=== PATIENT | male | born 1945 ===

== ENCOUNTER 2023-08-31 15:06 | Observation (INO) ==
[2023-08-31 18:10] LABS: ABS Basophils 0.1 10^3/uL (0.0-0.1); ABS Eosinophils 0.5 10^3/uL (0.0-0.5); ABS Lymphocytes 1.5 10^3/uL (1.0-4.8); ABS Monocytes 0.9 10^3/uL (0.0-1.1); ABS Neutrophils 6.7 10^3/uL (1.5-7.6); ABS Nucleated RBC 0.02 10^3/ul; Eosinophil % 4.7 %; Hematocrit 41.4 % (38-53); Hemoglobin 14.3 g/dL (13.2-16.3); Lymphocyte % 15.6 %; Mean Corpuscular Hemoglobin 30.9 pg (27-33); Mean Corpuscular Hgb Conc 34.5 g/dL (31-36); Mean Corpuscular Volume 89.3 fL (80-97); Mean Platelet Volume 7.7 fL (7.5-11.2); Nucleated Red Blood Cells % 0.3 %/100WBC (0.0-0.8); Platelet Count 211 10^3/uL (150-450); Red Blood Count 4.63 10^6/uL (4.06-5.63); Red Cell Distribution Width 17.2 % (12-17); White Blood Count 9.6 10^3/uL (3.6-10.2)
[2023-08-31 19:08] LABS: Albumin 4.3 g/dL (3.2-5.2); Albumin/Globulin Ratio 1.6 (1-3); C Reactive Protein 5.07 mg/L (<8.01); Calcium 9.3 mg/dL (8.6-10.3); Creatinine, Serum 0.84 mg/dL (0.67-1.17); Globulin 2.7 g/dL (2-4); Potassium 3.9 mmol/L (3.5-5.0); Total Bilirubin 0.6 mg/dL (0.2-1.0); eGFR CKD-EPI 89.3 (>60)
[2023-08-31 19:28] LABS: Erythrocyte Sed Rate 17 mm/Hr (0-19)
[2023-08-31] MEDS: cefTRIAXone 1 gm/50 mL D5W 1 GM/50 ML BAG IV SCH (19:31)
[2023-08-31] MEDS ORDERED: Vancomycin per Pharmacy 1 EA NOTE FOLLOW UP SCH (20:00)
[2023-08-31] MEDS: Vancomycin 1,750 MG in NS 0.9% 500 ml BAG 500 ML IVPB ONE (22:39)
[2023-08-31] MEDS: Latanoprost 0.005% 2.5 ml BTL BOTH EYES SCH (22:56)
[2023-09-01 09:02] LABS: ABS Eosinophils 0.3 10^3/uL (0.0-0.5); ABS Monocytes 0.7 10^3/uL (0.0-1.1); ABS Neutrophils 5.3 10^3/uL (1.5-7.6); ABS Nucleated RBC 0.01 10^3/ul; Eosinophil % 4.5 %; Hematocrit 45.3 % (38-53); Hemoglobin 15.3 g/dL (13.2-16.3); Lymphocyte % 13.6 %; Mean Corpuscular Hemoglobin 30.3 pg (27-33); Mean Corpuscular Hgb Conc 33.7 g/dL (31-36); Mean Corpuscular Volume 89.8 fL (80-97); Mean Platelet Volume 7.4 fL (7.5-11.2); Nucleated Red Blood Cells % 0.1 %/100WBC (0.0-0.8); Platelet Count 193 10^3/uL (150-450); Red Blood Count 5.04 10^6/uL (4.06-5.63); Red Cell Distribution Width 17.1 % (12-17); White Blood Count 7.4 10^3/uL (3.6-10.2)
[2023-09-01 10:00] LABS: Albumin 4.3 g/dL (3.2-5.2); Albumin/Globulin Ratio 1.5 (1-3); Calcium 9.3 mg/dL (8.6-10.3); Creatinine, Serum 0.87 mg/dL (0.67-1.17); Globulin 2.8 g/dL (2-4); Potassium 3.7 mmol/L (3.5-5.0); Total Bilirubin 0.7 mg/dL (0.2-1.0); Total Protein 7.1 g/dL (6.4-8.9); eGFR CKD-EPI 88.3 (>60)
[2023-09-01] MEDS: Vancomycin 1,250 MG in NS 0.9% 250 ml 250 ML IVPB SCH (11:49)
[2023-09-01] MEDS: Isosorbide Mononit ER 60mg TAB PO SCH (13:06)
[2023-09-01] MEDS: Potassium Chlor 10 meq TAB PO SCH (13:07)
[2023-09-01] MEDS: Aspirin EC 81 mg TAB.EC (enteric coated) PO SCH (15:57)
[2023-09-01 17:41] LABS: Rapid COVID-19 Molecular Undetected (Undetected)
[2023-09-02 10:28] VITALS: BP 129/68
[2023-09-02 11:20] LABS: Creatinine, Serum 1.01 mg/dL (0.67-1.17); Vancomycin Trough 13.3 mcg/mL; eGFR CKD-EPI 76.1 (>60)
[2023-09-02] MEDS: Vancomycin Trough Check NOTE FOLLOW UP ONE (13:22)
[2023-09-05] MEDS ORDERED: Vancomycin Trough Check NOTE FOLLOW UP ONE (10:30)
== END 2023-09-02 15:00 | disposition home or self-care (01) ==
LOC: EDHOLD 15:06 → ED 15:06 → MED 20:07 → UNDODISOB 09-02 15:00
PROVIDERS: ADMIT Internal Medicine; ATTEND Internal Medicine